=== PATIENT | female | born 1970 | race African-American/Black ===

== ENCOUNTER 2024-12-12 16:19 | Emergency (ER) | payer OTHER, SELFPAY ==
--- NOTE | ~2024-12-12 | CT_ITS ---
EXAMINATION: CT brain wo servando, 12/12/2024 16:45 CDT HISTORY: Fogginess COMPARISON: No comparisons available. Technique: Axial images obtained of the brain without contrast. One or more of the following dose reduction techniques were used: automated exposure control, adjustment of the mA and/or kV according to patient size, use of iterative reconstruction technique. Findings: No acute infarct or parenchymal hemorrhage. No abnormal mass or mass effect. No midline shift. No extra-axial fluid collections. No hydrocephalus. Mastoid air cells unremarkable. Sinuses and orbits unremarkable. No acute fracture. No significant facial or scalp soft tissue swelling evident. No radiopaque foreign body is seen. Impression: 1.No acute intracranial abnormality. Reviewed, dictated and finalized at location P. Impression: 1.No acute intracranial abnormality.
[2024-12-12 16:23] VITALS: BP 164/85; PULSE 86; RESP 12; TEMP 36.7; O2SAT 97
--- NOTE | 2024-12-12 16:40 | PC.NURSE ---
RN notified MD about possibly calling a code stroke based on eye symptoms that started two hours prior. Pt stated she had blurry vision and saw bright white lights at the peripheral of her vision two hours ago that went away. MD stated no code stroke.
[2024-12-12 16:43] LABS: Hematocrit 40.3 % (37.0-47.0); Hemoglobin 12.6 g/dL (12.0-15.0); Immature Granulocyte Percent A 0.3 % (0-0.5); Lymphocytes Absolute Auto 3.48 K/mm3 (0.9-3.2); Mean Corpuscular HGB Conc 31.3 g/dl (32-36); Mean Corpuscular Hemoglobin 25.4 pg (26-34); Mean Corpuscular Volume 81.3 fl (80-100); Nucleated Red Blood Cells Absolute Auto 0.000 K/mm3 (0.0-0.012); Nucleated Red Blood Cells Perc 0.0 % (0.0-0.2); Platelet Count Result 583 k/mm3 (150-375); Red Blood Count 4.96 M/mm3 (4.2-5.4); White Blood Count 10.1 K/mm3 (4.5-10.0)
--- NOTE | 2024-12-12 16:50 | ED_ITS ---
HPI - General Adult General Chief complaint: Recheck/Abnormal Lab/Rx Stated complaint: HTN Time Seen by Provider: 12/12/24 16:25 History of Present Illness HPI narrative: This is a 54-year-old female presenting with concerns about her blood pressure. Patient says she went to work this morning and started to feel off. She developed some visual changes in her peripheral vision. These resolved after 5 minutes. She felt lightheaded and woozy after that. She checked her blood pressure was elevated at 185/100. She went to her primary care physician and they directed her to come to the hospital. She did not have any slurred speech, difficulty speaking, weakness to any extremity. No chest pain difficulty breathing abdominal pain urinary symptoms. She is currently asymptomatic. 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 She also started a new job that is very stressful. She has not been taking her blood pressure medications for the last week. Related Data Allergies Allergy/AdvReac Type Severity Reaction Status Date / Time ampicillin Allergy Severe Swelling Verified 12/12/24 16:33 of Lip/Tongue/Throat Penicillins Allergy Severe Swelling Verified 12/12/24 16:33 of Lip/Tongue/Throat Exam 2 Narrative: APPEARANCE: No apparent distress. A&O x4 Head: atraumatic. EYES: EOMI, NOSE: Atraumatic NECK: Trachea midline RESPIRATORY: No increased rate of breathing CARDIOVASCULAR: RRR, ABDOMINAL: Non-distended soft nontender MUSCULOSKELETAl: No obvious deformities NEURO: Alert. Cranial nerves 2-12 grossly intact. Sensation light touch, motor function cerebellar function intact for 4 extremities. Gait exam was normal. NIH =0 SKIN:: Warm, dry. Normal color PSYCHIATRIC: Normal affect Course Vital Signs Vital signs: Vital Signs Temperature 98.1 F 12/12/24 16:23 Pulse Rate 86 12/12/24 16:23 Respiratory Rate 12 12/12/24 16:23 Blood Pressure 164/85 H 12/12/24 16:23 Pulse Oximetry 97 12/12/24 16:23 Oxygen Delivery Room Air 12/12/24 16:23 Temperature 98.1 F 12/12/24 16:23 Pulse Rate 86 12/12/24 16:23 Respiratory Rate 12 12/12/24 16:23 Blood Pressure 164/85 H 12/12/24 16:23 Pulse Oximetry 97 12/12/24 16:23 Oxygen Delivery Room Air 12/12/24 16:23 Medical Decision Making MDM Narrative Medical decision making narrative: -Course: This is a 54-year-old female presenting after a transient episode of feeling funny and peripheral vision changes. The symptoms have all resolved. She was concerned because her blood pressure is elevated although she has not been taking her antihypertensives consistently and is under a significant amount of stress. At no point did she develops signs of a stroke such facial droop, slurred speech, weakness to any extremity. She did not have loss of consciousness or significant confusion. She is well appearing overall is A&O x4 with a normal neurologic exam at this time.. On arrival here her blood pressure was 164/85 but quickly with dropped to 110/[address] brain and laboratory studies were within normal limits. Results were discussed with the patient she is comfortable following up with her primary care physician for further management. Given return precautions. -DDX includes but is not limited to: Stress reaction, anxiety, TIA, hypertensive emergency -Co-morbidities complicating care: Hypertension Vital Signs Vital Signs: Vital Signs Temperature 98.1 F 12/12/24 16:23 Pulse Rate 86 12/12/24 16:23 Respiratory Rate 12 12/12/24 16:23 Blood Pressure 164/85 H 12/12/24 16:23 Pulse Oximetry 97 12/12/24 16:23 Oxygen Delivery Room Air 12/12/24 16:23 Temperature 98.1 F 12/12/24 16:23 Pulse Rate 86 12/12/24 16:23 Respiratory Rate 12 12/12/24 16:23 Blood Pressure 164/85 H 12/12/24 16:23 Pulse Oximetry 97 12/12/24 16:23 Oxygen Delivery Room Air 12/12/24 16:23 Lab Data 12/12/24 16:36 12/12/24 16:36 Labs: Lab Results 12/12/24 Range/Units 16:36 WBC 10.1 H (4.5-10.0) K/mm3 RBC 4.96 (4.2-5.4) M/mm3 Hgb 12.6 (12.0-15.0) g/dL Hct 40.3 (37.0-47.0) % MCV 81.3 (80-100) fl MCH 25.4 L (26-34) pg MCHC 31.3 L (32-36) g/dl RDW 15.8 H (11.5-14.5) % Plt Count 583 H (150-375) k/mm3 MPV 8.4 (7.4-10.4) fl Immature Gran % (Auto) 0.3 (0-0.5) % Neut % (Auto) 53.0 (45.5-73.1) % Lymph % (Auto) 34.6 (18.3-44.2) % Greer % (Auto) 9.5 H (2.6-8.5) % Eos % (Auto) 2.0 (0-4.4) % Baso % (Auto) 0.6 (0.2-1.2) % Lymph # (Auto) 3.48 H (0.9-3.2) K/mm3 Greer # (Auto) 1.0 H (0.1-0.6) K/mm3 Eos # (Auto) 0.2 (0-0.3) K/mm3 Baso # (Auto) 0.1 (0.0-0.1) K/mm3 Abs Immat Gran (auto) 0.03 (0.00-0.031) K/mm3 Absolute Neuts (auto) 5.3 (1.3-6.7) K/mm3 Absolute Nucleated RBC 0.000 (0.0-0.012) K/mm3 Nucleated RBC % 0.0 (0.0-0.2) % Sodium Pending Potassium Pending Chloride Pending Carbon Dioxide Pending Anion Gap Pending BUN Pending Creatinine Pending Estim Creat Clear Calc Pending Estimated GFR Pending Glucose Pending Calcium Pending Total Bilirubin Pending AST Pending ALT Pending Alkaline Phosphatase Pending Total Protein Pending Albumin Pending Discharge Plan Discharge Clinical Impression: HTN (hypertension), Dizziness and giddiness Patient Disposition: Home Condition: Stable Instructions: Antibiotic Form, Chronic Hypertension (DC) Additional Instructions: You were seen in the emergency department for elevated blood pressure. Return to normal on its own. Please make sure you are taking your blood pressure medications every day. Follow-up with your primary care physician for further management. If you develop any new or worsening symptoms return to ED for re- evaluation. Patient Language: Yakut Follow-up/Referrals: Mac,Susana Prado APPOINTMENT MANAGER [Primary Care Provider, Unknown] - 1 Week Referral Note: ED f/u: HTN
[2024-12-12 16:56] LABS: Alanine Aminotransferase 20 U/L (6-35); Albumin Level 4.1 g/dL (3.5-5.1); Alkaline Phosphatase 98 U/L (38-126); Anion Gap 10 mmol/L (4-12); Aspartate Amino Transferase 20 U/L (14-36); Bilirubin,Total 0.3 mg/dL (0.2-1.3); Blood Urea Nitrogen 18 mg/dL (7-17); Calcium 9.0 mg/dL (8.4-10.2); Carbon Dioxide 25 mmol/L (22-30); Chloride 103 mmol/L (98-107); Estimated CRCL calculation 104 ml/min; Estimated Glomerular Filt Rate 60; Glucose 97 mg/dL (65-110); Potassium 4.0 mmol/L (3.4-5.0); Sodium 138 mmol/L (137-145); Total Protein 8.6 g/dL (6.3-8.2)
[2024-12-12 17:00] VITALS: BP 124/72; PULSE 84; RESP 20; O2SAT 100
--- OUTSIDE RECORDS SUMMARY | 2024-12-12 17:18 | XMS_ITS | Clinical Summary ---
Author Organization [facility] Address [address] [facility] [place] [address] Phone Care Team Providers Care Pulmonary Disease Specialist Name Role Phone Unavailable Primary Care Provider Unavailabl e Allergies Active Allergy Reactions Criticality Noted Date Comments Latex Itching Low 08/16/2011 Penicillins Swelling Low 06/15/2009 Unclassified Drug Swelling Low 04/30/2014 Medications cetirizine (ZYRTEC) 10 mg tabletIndication s:Seasonal allergic rhinitis Take 1 Tablet (10 mg) by mouth daily. 11/18/2014 Active esomeprazole (NEXIUM) 40 mg Capsule, Delayed Release(E.C.)Ind ications:Gastroe sophageal reflux disease, esophagitis presence not specified Take 1 Capsule (40 mg) by mouth daily before breakfast. 90 Capsule 3 11/18/2014 Active ranitidine HCl (ZANTAC) 150 mg CapsuleIndicatio ns:Gastroesophag eal reflux disease, esophagitis presence not specified Take 1 Capsule (150 mg) by mouth 2 times daily. 120 Capsule 3 11/18/2014 Active meclizine (ANTIVERT) 12.5 mg tabletIndication s:Dizziness Take 1 Tablet (12.5 mg) by mouth 3 times daily as needed for Dizziness. 30 Tablet 0 07/24/2015 Active Active Problems Patient Care Coordination No te Formatting of this note migh t be different from the original. HCC codes reviewed 08/06/2013 Problem Noted Date Diagnosed Date TAMMY on CPAP 11/18/2014 Prolonged Q-T interval on ECG 10/09/2013 Obesity, Class III, BMI 40-49.9 (morbid obesity) 10/09/2013 GERD (gastroesophageal reflux disease) 2 Sleep apnea 11/24/2009 Seasonal allergic rhinitis 06/15/2009 Immunizations Immunization Administration Dates Next Due (TDVAX)(7 YRS UP) TETANUS AN D DIPHTHERIA TOXOIDS, ADSORBED (2 LF OF TETANUS TOXOID AND 2 LF OF DIPHTHERIA TOXOID), 0.5ML (PF), IM 02/20/2003 Influenza Seasonal Unspecified Formulation IM Family History Medical History Relation Name Comments Heart Disease Father Hypertension Father Stroke Father Liver Disease Maternal Grandfather Stroke Maternal Grandmother Asthma Mother Relation Name Status Comments Father Maternal Grandfather Maternal Grandmother Alive Mother Alive Other Other no children Paternal Grandfather Paternal Grandmother Sister Alive Social History Tobacco Use Types Packs/Day Years Used Date Smoking Tobacco: Former Cigarettes Q uit: 02/20/1998 Smokeless Tobacco: Never Alcohol Use Standard Drinks/Week Comments No 0 (1 standard drink = 0.6 oz pur e alcohol) Comments No Sex and Gender Information Value Date Recorded Sex Assigned at Not on file 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 Gender Identity Not on file Sexual Orientation Not on file Occupation Industry Job Start Date Job End Date not employeed Not on file Not on file Not on file Not on file Not on file Not on file Not on file Last Filed Vital Signs Vital Sign Reading Time Taken Comments Blood Pressure 117/73 07/24/2015 11:57 AM CDT Pulse 72 07/24/2015 11:57 AM CDT Temperature 36.7 C (98 F) 07/24/2015 11:57 AM CDT Respiratory Rate 15 07/24/2015 11:57 AM CDT Oxygen Saturation 97% 07/24/2015 11:57 AM CDT Inhaled Oxygen Concentration - - Weight 176.9 kg (390 lb) 07/24/2015 11:57 AM CDT Height 188 cm (6' 2) 07/24/2015 11:57 AM CDT Body Mass Index 50.07 07/24/2015 11:57 AM CDT Plan of Treatment Health Maintenance Due Date Last Done Comments Pre-Diabetes and Diabetes Screening 1971 HEPATITIS B VACCINES (1 of 3 - 19+ 3-dose series) 1990 HPV/Cotest (21-29) 1992 HPV/Cotest (30-65) 2001 DTAP/TDAP/TD VACCINES (1 - Tdap) 02/21/2003 02/20/19 04 CERVICAL CANCER SCREENING 05/20/2015 PAP SMEAR 05/20/2015 05/19/2012, 08/20/2008 BREAST CANCER SCREENING 03/20/2016 03/20/2015 COLORECTAL SCREENING 2016 Colorectal Cancer Screening 2016 FIT-DNA Q 3 years 2016 FIT/FOBT Q 1 year 2016 Flex Sig/CT Colonography Q 5 years 2016 ZOSTER VACCINE (1 of 2) 2021 INFLUENZA VACCINE (#1) 2024 11/21/2007 Insurance [place]ICAID [place]
--- OUTSIDE RECORDS SUMMARY | 2024-12-12 17:18 | XMS_ITS | Clinical Summary ---
Author Organization [facility] Address [address] [place] [address] Phone Care Team Providers Care Starch Mangle Tender Name Role Phone Susana Watts APRN, [employer] Primary Care Provider Phillip Hernandez MD Unavailable [phone] Allergies Active Allergy Reactions Criticality Noted Date Comments Codeine Other (see Comments) 06/29/2012 Latex Itching Low 08/16/2011 Penicillins Swelling Low 06/15/2009 Medications losartan (COZAAR) 50 MG Tablet Take 50 mg by mouth daily. 10/17/2023 Active Ferrous Sulfate (IRON PO) Take by mouth. Active BLACK CURRANT SEED OIL PO Take by mouth. Active Misc Natural Products (BEET ROOT PO) Take by mouth daily. Active BITTER MELON PO Take by mouth daily. Active ferrous sulfate 325 (65 Fe) MG TabletIndication s:Thrombocytosis ,Iron deficiency Take 1 Tablet by mouth daily. 30 Tablet 3 01/25/2024 Active Active Problems Problem Noted Date Diagnosed Date Thrombocytosis 12/28/2023 Hypertension Family History Medical History Relation Name Comments Stroke Father Cancer Mother malignant tumor of gallbladder Relation Name Status Comments Father Mother Social History Tobacco Use Types Packs/Day Years Used Date Smoking Tobacco: Former Cigarettes Smokeless Tobacco: Never Tobacco Cessation:Counseling Given: Not Answered Alcohol Use Standard Drinks/Week Comments Never 0 (1 standard drink = 0.6 oz pur e alcohol) Comments Unknown Sex and Gender Information Value Date Recorded Sex Assigned at Not on file Legal Sex Female 3:00 PM CDT Gender Identity Not on file Sexual Orientation Not on file Last Filed Vital Signs Vital Sign Reading Time Taken Comments Blood Pressure 124/72 01/25/2024 10:51 AM [employer] Pulse 90 01/25/2024 10:51 AM [employer] Temperature 36.6 C (97.8 F) 01/25/2024 10:51 AM [employer] Respiratory Rate 18 01/25/2024 10:51 AM [employer] Oxygen Saturation 97% 01/25/2024 10:51 AM [employer] Inhaled Oxygen Concentration - - Weight 178.3 kg (393 lb) 01/25/2024 10:51 AM [employer] Height 188 cm (6' 2) 01/25/2024 10:51 AM [employer] Body Mass Index 50.46 01/25/2024 10:51 AM [employer] Plan of Treatment Upcoming Encounters Date Type Department Care Team (Late st Contact Info) Description 12/16/2024 1:30 PM CDT Office Visit [facility] [address] [place] [address] Rudy Quevedo, WIRE MACHINE OPERATOR, [address] [place] [address] Health Maintenance Due Date Last Done Comments Hepatitis C Virus (HCV) Screening 1971 Mammogram 1971 TdaP Immunization 1971 Hepatitis B Immunization (1 of 3 - 19+ 3-dose series) 1990 Pap Smear 1992 Cervical Cancer Screening (CCS) 2001 HPV/Cotest 2001 Cologuard 2016 Colonoscopy 2016 Colorectal Cancer Screening 2016 Immunochemical Fecal Occult Blood 2016 Pneumococcal Immunization (5 0+ years) (1 of 1 - PCV) 2021 Zoster Immunization (1 of 2) 2021 Medicare Initial AWV [id number] 03/23/2023 Influenza Immunization (#1) 2024 11/21/2007 SARS-COV-2 Immunization ( - season) 2024 Respiratory Syncytial Virus (RSV) Immunization (Adult) (1 - 1-dose 75+ series) 2046 Human Papillomavirus (HPV) Immunization Aged Out No longer eligible b ased on patient's age to complete this topic Meningococcal Immunization (ACWY) Aged Out No longer eligible based on patient's age to complete this topic Rotavirus Immunization Aged Out No lo nger eligible based on patient's age to complete this topic Insurance MEDICARE C [place] MEDICARE C [place] Member Subscriber Plan / Payer (Ef fective 2022-Present) Name:Mili Sepulveda Relation to Subscriber:Self Name:Mili Sepulveda Payer ID:[id number] (NAIC) Type:Not on file Address: [place] [id number] Care Teams Starch Mangle Tender Relationship Specialty Start Date End Date Susana Watts APRN, [employer] [address] [place] [address] PCP - General Advanced Practice Nurse 12/04/23 Phillip Hernandez MD [address] [place] [phone] Consulting Physician Oncology 12/04/23
[2024-12-12 17:45] VITALS: BP 132/76; PULSE 70; RESP 18; O2SAT 100
== END 2024-12-12 18:08 | disposition home or self-care (01) ==
PROVIDERS: Emergency Provider Emergency Medicine; PCP Nurse Practitioner Family
DX: R42 Dizziness and giddiness (principal); I10 Essential (primary) hypertension; T46.5X6A Underdosing of other antihypertensive drugs, initial encounter; Z91.138 Patient's unintentional underdosing of medication regimen for other reason
CPT/HCPCS: 36415; 70450; 80053; 85025; 99284